=== PATIENT | male | born 1970 | race Caucasian/White ===

== ENCOUNTER 2020-01-29 20:37 | Inpatient (IN) | payer BC ==
[~2020-01-29] VITALS: Ht 170.2 cm; Wt 120.2 kg
[2020-01-29] MEDS ORDERED: MORPHINE SULFATE 4 MG/ML CPJ (NOT FOR IM USE) IV STA (21:11)
[2020-01-29] MEDS ORDERED: ONDANSETRON HCL 4MG/2ML INJ IV STA (21:11)
[2020-01-29] MEDS ORDERED: METOCLOPRAMIDE HCL 10MG/2ML VIAL IV ONE (22:00)
[2020-01-29] MEDS ORDERED: MAGNESIUM 1 G PREMIX 100 ML IV ONE (22:00)
[2020-01-29 22:13] LABS: BASOPHILS % 0.7 % (0.0-2.0); HEMATOCRIT. 39.7 % (42.0-52.0); HEMOGLOBIN. 13.5 g/dL (14.0-18.0); MEAN CORPUSCULAR HEMOGLOBIN 30.7 pg (28.0-32.0); MEAN CORPUSCULAR VOLUME 90.5 fL (80.0-94.0); MEAN PLATELET VOLUME 8.5 fl (7.4-10.4); MONOCYTES % 12.5 % (2.0-8.0); NEUTROPHILS % 52.8 % (40.0-76.0); PLATELET 272 x1000/uL (130-400); RED BLOOD CELL COUNT 4.39 mill/uL (4.7-6.1); RED CELL DISTRIBUTION WIDTH 13.3 % (11.6-14.6)
[2020-01-29] MEDS ORDERED: METOPROLOL TARTRATE 25MG TABLET PO ONE (22:15)
[2020-01-29 22:18] LABS: CHLORIDE 110 mEq/L (98-107)
[2020-01-29 22:19] LABS: INR 0.9; PROTHROMBIN TIME 9.8 sec (9.6-11.0)
[2020-01-29 22:23] LABS: ETHANOL BLOOD < 10 mg/dL
[2020-01-29 23:38] LABS: *AMPHETAMINES SCREEN URINE NEGATIVE (NEGATIVE)
[2020-01-29 23:39] LABS: *BARBITURATES SCREEN URINE NEGATIVE (NEGATIVE); *BENZODIAZEPINES SCREEN URINE NEGATIVE (NEGATIVE); *COCAINE SCREEN URINE NEGATIVE (NEGATIVE); CANNABINOID URINE SCREEN PRESUMTIVE POSITIVE (NEGATIVE); METHADONE URINE SCREEN NEGATIVE (NEGATIVE); OPIATES URINE SCREEN PRESUMTIVE POSITIVE (NEGATIVE); PHENCYCLIDINE URINE SCREEN NEGATIVE (NEGATIVE)
[2020-01-30] VITALS: BP 117/79
[2020-01-30] MEDS ORDERED: NITR0.4T49 SL (00:24)
[2020-01-30] MEDS ORDERED: LEVE500T19 PO (00:26)
[2020-01-30] MEDS ORDERED: CARV3.1242 PO (00:26)
[2020-01-30] MEDS ORDERED: LIP40 PO (00:26)
[2020-01-30] MEDS ORDERED: IBUP-2029 PO (00:28)
[2020-01-30] MEDS ORDERED: LISI-604 PO (00:28)
[2020-01-30] MEDS ORDERED: ATORVASTATIN CALCIUM 40MG TABLET PO SCH ×4 (01:00→21:00)
[2020-01-30] MEDS ORDERED: LISINOPRIL 20MG TABLET PO SCH ×3 (01:00→09:00)
[2020-01-30] MEDS ORDERED: LEVETIRACETAM 500MG TABLET PO SCH ×3 (01:00→09:00)
[2020-01-30] MEDS ORDERED: NITROGLYCERIN 0.4MG TABLET SL SL PRN (01:00)
[2020-01-30] MEDS ORDERED: IBUPROFEN 600MG TABLET PO SCH (01:00)
[2020-01-30] MEDS ORDERED: IBUPROFEN 600MG TABLET PO PRN (01:15)
[2020-01-30 06:02] LABS: CHLORIDE 109 mEq/L (98-107)
[2020-01-30 06:06] LABS: BASOPHILS % 0.8 % (0.0-2.0); EOSINOPHILS % 4.2 % (0.0-5.0); HEMATOCRIT. 39.9 % (42.0-52.0); HEMOGLOBIN. 13.6 g/dL (14.0-18.0); LYMPHOCYTES % 26.7 % (20.0-50.0); MEAN CORPUSCULAR HEMOGLOBIN 31.3 pg (28.0-32.0); MEAN CORPUSCULAR VOLUME 91.6 fL (80.0-94.0); MEAN PLATELET VOLUME 8.8 fl (7.4-10.4); MONOCYTES % 11.5 % (2.0-8.0); NEUTROPHILS % 56.8 % (40.0-76.0); PLATELET 245 x1000/uL (130-400); RED BLOOD CELL COUNT 4.36 mill/uL (4.7-6.1); RED CELL DISTRIBUTION WIDTH 13.4 % (11.6-14.6)
[2020-01-30 06:12] LABS: CREATINE KINASE 103 IU/L (39-308)
[2020-01-30 06:13] LABS: CREATINE KINASE MB FRACTION 1.1 ng/mL (0.5-3.6)
[2020-01-30 08:00] VITALS: BP 131/57
[2020-01-30] MEDS ORDERED: ENOXAPARIN 30MG/0.3ML SYR SUBCUT SCH (09:00)
[2020-01-30] MEDS ORDERED: ENOXAPARIN 40MG/0.4ML SYR SUBCUT SCH (09:00)
[2020-01-30] MEDS ORDERED: CARVEDILOL 3.125 MG TABLET PO SCH (09:00)
[2020-01-30 12:00] VITALS: BP 166/86
[2020-01-30 15:45] LABS: CREATINE KINASE 97 IU/L (39-308)
[2020-01-30 15:46] LABS: CREATINE KINASE MB FRACTION 1.1 ng/mL (0.5-3.6)
[2020-01-30 15:57] VITALS: BP 131/57
== END 2020-01-30 17:00 | disposition home or self-care (01) | DRG 305 ==
LOC: ER 20:37 → 5WST 22:05 → CANRESERV 22:26 → ENRESERV 22:26
PROVIDERS: ADMIT Internal Medicine; ATTEND Internal Medicine
DX: I16.0 Hypertensive urgency (principal); Z68.41 Body mass index [BMI] 40.0-44.9, adult; E66.01 Morbid (severe) obesity due to excess calories; G40.909 Epilepsy, unspecified, not intractable, without status epilepticus; I10 Essential (primary) hypertension; I25.10 Atherosclerotic heart disease of native coronary artery without angina pectoris; R07.89 Other chest pain; I25.2 Old myocardial infarction; Z79.899 Other long term (current) drug therapy; Z82.49 Family history of ischemic heart disease and other diseases of the circulatory system; Z86.73 Personal history of transient ischemic attack (TIA), and cerebral infarction without residual deficits; Z87.891 Personal history of nicotine dependence; Z90.49 Acquired absence of other specified parts of digestive tract
CPT/HCPCS: 36415; 71045; 80048; 80053; 80305; 80320; 82550; 82553; 83605; 83880; 84484; 85025; 86850; 86900; 93005; 93306; 96374; 99285; J1650; J2270; J2405; J2765; J3475; G0480